=== PATIENT | male | born 1950 | race Caucasian/White ===

== ENCOUNTER 2017-06-18 16:19 | Inpatient (IN) | payer OTHER ==
[~2017-06-18] VITALS: Ht 170.2 cm; Wt 83.9 kg
[2017-06-18 17:30] LABS: BASOPHIL (%) 0.6 % (0-1); BASOPHIL COUNT 0.1 K/uL (0-0.1); EOSINOPHIL (%) 1.1 % (0-5); EOSINOPHIL COUNT 0.1 K/uL (0-0.3); HEMATOCRIT 43.7 % (38.0-50.0); HEMOGLOBIN 14.6 G/DL (12.5-16.6); IMMATURE GRANULOCYTE (%) 0.2 % (0.0-0.7); LYMPHOCYTE COUNT 2.7 K/uL (1.0-2.8); MCH 29.4 PG (29.0-34.0); MCHC 33.4 G/DL (30.0-36.0); MCV 87.9 FL (86-99); MONOCYTE (%) 9.2 % (3-12); MONOCYTE COUNT 0.8 K/uL (0-0.8); NEUTROPHIL (%) 57.9 % (45-76); NEUTROPHIL COUNT 5.1 K/uL (1.8-6.4); PLATELET COUNT 242 K/uL (156-360); RBC DIS.WIDTH-CV 13.2 % (11.8-14.6); RBC DIS.WIDTH-SD 42.5 % (39-53); RED BLOOD COUNT 4.97 M/uL (4.00-5.50); WHITE BLOOD COUNT 8.8 K/uL (4.1-10.2)
[2017-06-18 17:50] LABS: CHLORIDE 106 mEq/L (99-109); POTASSIUM 4.3 mEq/L (3.7-5.4); SODIUM 139 mEq/L (136-147)
[2017-06-18 17:51] LABS: GLUCOSE 97 mg/dL (70-99)
[2017-06-18 17:55] LABS: CREATININE 1.1 mg/dL (0.6-1.3); GFR ESTIMATE (CALCULATED) > 59 mL/min/ (58.99-99999)
[2017-06-18 17:56] LABS: UREA NITROGEN (BUN) 21 mg/dL (9-23)
[2017-06-18 19:48] LABS: TROP-I INTERPRETATION NEGATIVE; TROPONIN-I 0.01 ng/mL (0.0-0.30)
[2017-06-18] MEDS ORDERED: LO-DOSE ASPIRIN81 M2 PO (22:47)
[2017-06-18] MEDS ORDERED: CIALIS10 MG PO (22:48)
[2017-06-18] MEDS ORDERED: METOPROLOL SUCC50 MG PO (22:50)
[2017-06-18] MEDS ORDERED: OLMESARTAN MEDOX5 MG PO (22:50)
[2017-06-18] MEDS ORDERED: SIMVASTATIN20 MG PO (22:51)
[2017-06-19] VITALS (7 sets, daily range): BP systolic 133–184; BP diastolic 64–98
[2017-06-20 00:01] VITALS: BP 131/64
[2017-06-20 03:00] VITALS: BP 112/72
[2017-06-20 06:33] LABS: BASOPHIL (%) 0.6 % (0-1); BASOPHIL COUNT 0.1 K/uL (0-0.1); EOSINOPHIL (%) 1.3 % (0-5); EOSINOPHIL COUNT 0.1 K/uL (0-0.3); HEMATOCRIT 43.8 % (38.0-50.0); HEMOGLOBIN 14.3 G/DL (12.5-16.6); IMMATURE GRANULOCYTE (%) 0.2 % (0.0-0.7); LYMPHOCYTE (%) 30.9 % (15-42); LYMPHOCYTE COUNT 2.5 K/uL (1.0-2.8); MCH 29.1 PG (29.0-34.0); MCHC 32.6 G/DL (30.0-36.0); MCV 89.2 FL (86-99); MONOCYTE COUNT 0.8 K/uL (0-0.8); NEUTROPHIL COUNT 4.7 K/uL (1.8-6.4); PLATELET COUNT 219 K/uL (156-360); RBC DIS.WIDTH-CV 13.5 % (11.8-14.6); RBC DIS.WIDTH-SD 44.5 % (39-53); RED BLOOD COUNT 4.91 M/uL (4.00-5.50); WHITE BLOOD COUNT 8.2 K/uL (4.1-10.2)
[2017-06-20 06:51] LABS: CHLORIDE 105 MEQ/L (99-109); CREATININE 1.3 MG/DL (0.6-1.3); GFR ESTIMATE (CALCULATED) 59 mL/min/ (58.99-99999); GLUCOSE 98 mg/dL (70-99); POTASSIUM 4.3 MEQ/L (3.7-5.4); SODIUM 139 MEQ/L (136-147); UREA NITROGEN (BUN) 24 mg/dL (9-23)
[2017-06-20 07:23] VITALS: BP 179/97
[2017-06-20 12:20] VITALS: BP 179/97
[2017-06-20 14:11] VITALS: BP 139/78
[2017-06-20] MEDS ORDERED: AMLODIPINE BESYL5 MG PO (15:00)
== END 2017-06-20 17:10 | disposition home or self-care (01) | DRG 305 ==
LOC: EME 16:19 → EDOF 23:50 → ENRESERV 23:52 → 5WEST 06-19 01:58
PROVIDERS: Internal Medicine; Physician Assistant
DX: I16.0 Hypertensive urgency (principal); I10 Essential (primary) hypertension; R51 Headache; I25.10 Atherosclerotic heart disease of native coronary artery without angina pectoris; E78.5 Hyperlipidemia, unspecified; F41.9 Anxiety disorder, unspecified; Z95.1 Presence of aortocoronary bypass graft
CPT/HCPCS: 70450; 80048; 84484; 85025; 93005; 99281; 99284; G0378; J0360; J1644; J1885; J2765